=== PATIENT | female | born 1945 | race Two or more races ===

== ENCOUNTER 2018-01-01 06:24 | Emergency (ER) | payer MEDICARE, MEDICAID ==
[~2018-01-01] VITALS: Ht 154.9 cm; Wt 99.8 kg
[~2018-01-01 06:24] MED LIST: AMLO5TAB2; ASPI81CH43; CARV3.1240; CLIN1CAP4; INSULIN; LEVO100T81; LISI-285; METF-372; PRAV20TA3 PO; RAMI10CA38; SIMV10TA84; VERA240T; [UNRECOGNIZED DRUG - CODE]
[2018-01-01 06:34] VITALS: BP 151/87
[2018-01-01] MEDS ORDERED: KETOROLAC TROMETH 60MG/2ML VIAL IM ONE (06:45)
[2018-01-01] MEDS ORDERED: CYCLOBENZAPRINE HCL 10 MG TAB PO ONE (06:45)
== END 2018-01-01 08:09 | disposition home or self-care (01) ==
LOC: ER 06:26
DX: R51 Headache (principal); R42 Dizziness and giddiness; E11.9 Type 2 diabetes mellitus without complications; E78.5 Hyperlipidemia, unspecified; I10 Essential (primary) hypertension
CPT/HCPCS: 70450; 96372; 99284; J1885

== ENCOUNTER 2023-04-05 07:56 | Emergency (ER) | payer MEDICARE, MEDICAID ==
[~2023-04-05] VITALS: Ht 154.9 cm; Wt 95.0 kg
[~2023-04-05 07:56] MED LIST changes: +AMLO1TAB22; -AMLO5TAB2; -CLIN1CAP4; +CLIN300C70; +SIMV10TA20; -SIMV10TA84
[2023-04-05 08:18] VITALS: BP 150/45
[2023-04-05] MEDS ORDERED: HYDR-4902 PO (09:39)
== END 2023-04-05 09:40 | disposition home or self-care (01) ==
LOC: ER 07:56
DX: M23.92 Unspecified internal derangement of left knee (principal); E11.9 Type 2 diabetes mellitus without complications; E78.5 Hyperlipidemia, unspecified; I10 Essential (primary) hypertension
CPT/HCPCS: 73562; 73590